=== PATIENT | male | born 1975 | race African-American/Black ===

== ENCOUNTER 2022-02-22 08:38 | Emergency (ER) | payer BC ==
[2022-02-22] MEDS ORDERED: hydrALAZINE 10 MG TAB ONE (09:13)
[2022-02-22 09:31] LABS: Band 1 % (5-11); Hemoglobin 15.2 g/dL (14.0-18.0); Lymphocytes 25 % (21-51); MDiff Complete? YES; Mean Corpuscular HGB CONC 31.2 g/dL (32.0-36.0); Mean Corpuscular Hemoglobin 28.4 pg (27.0-31.0); Mean Corpuscular Volume 90.9 fL (78.0-98.0); Mean Platelet Volume 13.2 fL (7.4-10.4); Monocytes 9 % (0-10); Neutrophil 65 % (42-75); Platelet Count 186 thou/uL (130-400); Platelet Morphology Comment Appears Adequate; RBC Distribution Width 12.6 % (11.5-14.5); RBC Morphology Normal; Red Blood Cell (RBC) Count 5.36 mill/uL (4.70-6.10); White Blood Cell (WBC) Count 6.9 thou/uL (4.8-10.8)
[2022-02-22 09:38] LABS: ALT (SGPT) 23 U/L (8-55); AST (SGOT) 19 U/L (5-34); Acetaminophen Less than 10.0 mcg/mL (10.0-30.0); Albumin 4.4 g/dL (3.5-5.0); Alcohol Less than 10 mg/dL (Less than 10); Alkaline Phosphatase 100 U/L (40-110); Anion Gap 18 mmol/L (10-20); BUN (Urea Nitrogen) 13 mg/dL (8.9-20.6); Bilirubin, Total 0.7 mg/dL (0.2-1.2); Calc. Creatinine Clearance 0 mL/min (70-130); Calcium 9.2 mg/dL (7.8-10.44); Carbon Dioxide 22 mmol/L (22-29); Chloride 105 mmol/L (98-107); Globulin 2.6 g/dL (2.4-3.5); Glucose 128 mg/dL (70-105); Magnesium 1.9 mg/dL (1.6-2.6); Potassium 3.8 mmol/L (3.5-5.1); Salicylate Less than 8.0 mg/dL (15.0-30.0); Sodium 141 mmol/L (136-145)
[2022-02-22 10:36] LABS: Amphetamine Not Detected (NotDetected); Barbiturates Screen Not Detected (NotDetected); Benzodiazepine Screen Not Detected (NotDetected); Cocaine Metabolite Screen Not Detected (NotDetected); Medtox Control Line Valid? VALID (VALID); Methadone Not Detected (NotDetected); Methamphetamine Not Detected (NotDetected); Opiate Screen Not Detected (NotDetected); Oxycodone Screen Not Detected (NotDetected); Phencyclidine (PCP) Not Detected (NotDetected); THC/Cannabinoid Screen Detected (NotDetected); Tricyclic Screen Not Detected (NotDetected)
[2022-02-22] MEDS ORDERED: diphenhydrAMINE 50 MG/ML VIAL ONE (11:16)
[2022-02-22] MEDS ORDERED: Ketorolac Tromethamine 30 MG/ML VIAL ONE (11:16)
[2022-02-22] MEDS ORDERED: Metoclopramide HCl 10 MG/2 ML VIAL ONE (11:16)
== END 2022-02-22 12:35 | disposition short-term general hospital (02) ==
LOC: MADERS 08:38
DX: I16.0 Hypertensive urgency (principal); N17.9 Acute kidney failure, unspecified; R94.31 Abnormal electrocardiogram [ECG] [EKG]; F17.210 Nicotine dependence, cigarettes, uncomplicated
CPT/HCPCS: 70450; 71045; 80053; 80306; 80307; 83690; 83735; 84484; 85025; 93005; 96374; 96375; J1200; J1885; J2765

== ENCOUNTER 2022-12-12 14:54 | Outpatient (CLI) | payer OTHER | END 2022-12-12 14:55 | disposition home or self-care (01) | LOC: MADRAD 14:54 | PROVIDERS: ATTEND Registered Nurse | DX: K92.1 Melena (principal) | CPT/HCPCS: 74019 ==